=== PATIENT | female | born 1970 ===

== ENCOUNTER 2018-10-07 15:34 | Outpatient (CLI) | payer OTHER ==
--- NOTE | 2018-10-07 16:29 | Vascular Lab Report ---
DUPLEX DOPPLER LOWER EXTREMITY VEINS, BILATERAL INDICATION: INFLAMMATION SWELLING OF B/L LEG(M79.89) CALF PAIN/LOWER LEG (M. TECHNIQUE: Duplex doppler imaging was performed through the veins of both lower extremities using venous rich gautam and other maneuvers. COMPARISON: None available. FINDINGS: Right Common femoral vein: Negative. Right Superficial femoral vein: Negative. Right Popliteal vein: Negative. Right Calf veins: Negative. Left Common femoral vein: Negative. Left Superficial femoral vein: Negative. Left Popliteal vein: Negative. Left Calf veins: Negative. Additional findings: There is a small 1.7 x 1.1 cm popliteal cyst on the left. IMPRESSION: 1. No sonographic evidence for DVT in either lower extremity. Signer Name: Chas Yuan MD Signed: 10/07/2018 4:25 PM Workstation Name: [id number]
== END 2018-10-07 15:35 | disposition home or self-care (01) ==
LOC: VAS 15:34
PROVIDERS: ATTEND Podiatrist Foot & Ankle Surgery
DX: M79.89 Other specified soft tissue disorders (principal); M79.662 Pain in left lower leg
CPT/HCPCS: 93970